=== PATIENT | male | born 1930 | race Caucasian/White ===

== ENCOUNTER → 2016-06-25 | Outpatient (CLI) | payer OTHER ==
[~2016-06-25] MED LIST: ALPH300C PO; ASCO500T3 PO; BIOT1CAP3 PO; BRIM0.1S OPB; CALC-440 PO; CHOL20005 PO; CLON0.1D7 TD; CLR10 PO; COEN1CAP46 PO; CRS/10 PO; CTP/1 PO; FROV2.5T5 PO; GLUCTAB7 PO; HYDR-5688 PO; HYDR25TA4 PO; LISI10TA PO; METO100T14 PO; MULT-221 PO; OMEG10007 PO; POLY335019 PO; PROB1TAB16 PO; PSYL55.43 PO; RESV100C PO; TURM1CAP PO; WARF4TAB43 PO
--- NOTE | 2016-06-25 12:49 | DIAGNOSTIC IMAGING REPORT ---
RIGHT RIBS UNILATERAL WITH PA CHEST CLINICAL HISTORY: Right rib pain COMPARISON STUDY: 12/13/2015 FINDINGS: The erect chest reveals no pneumothorax. There is a left subclavian dual-chamber central venous pacemaker present. There is no focal pulmonary consolidation. There is a minimal deformity the right sixth rib anteriorly which is felt to be old. No acute fractures are visualized. IMPRESSION: No acute fractures. No evidence of pneumothorax. Electronically signed by: Xander Alvarez M.D. 06/25/2016 12:47 PM Dictated Date/Time: 06/25/2016 12:45 PM
== END | disposition home or self-care (01) ==
LOC: C.RAD1850 11:52
PROVIDERS: ATTEND Family Medicine
DX: R07.81 Pleurodynia (principal)

== ENCOUNTER → 2016-06-29 | Outpatient (CLI) | payer OTHER ==
[~2016-06-29] MED LIST changes: +ALEN70TA4 PO; +AMIO200T4 PO; +AMOX875T PO; +BENZ100C18 PO; +CHOL1TAB46 PO; +CLON0.2D4 TD; +CODEINE COUGH SYRUP PO; +COEN1CAP17 PO; +DOCU100C PO; +LSN20 PO; +PSYL48.59 PO
--- NOTE | 2016-06-29 13:07 | DIAGNOSTIC IMAGING REPORT ---
RIGHT KNEE 1 OR 2 VIEWS CLINICAL HISTORY: BILATERAL KNEE PAIN Right pain COMPARISON: None. DISCUSSION: Patient is status post bilateral total joint replacement. Good contact between prosthetic and underlying bone. No significant joint effusion. There is no evidence for soft tissue swelling. IMPRESSION: Anatomic alignment status post bilateral total knee arthroplasties Electronically signed by: Lexx Ayers M.D. 06/29/2016 1:06 PM Dictated Date/Time: 06/29/2016 1:04 PM
== END | disposition home or self-care (01) ==
LOC: C.RDSM 11:25
PROVIDERS: ATTEND Physician Assistant
DX: Z96.653 Presence of artificial knee joint, bilateral (principal)

== ENCOUNTER → 2016-10-08 | Outpatient (CLI) | payer OTHER ==
[~2016-10-08] MED LIST changes: -ALEN70TA4 PO; -AMIO200T4 PO; -AMOX875T PO; -BENZ100C18 PO; -CHOL1TAB46 PO; -CLON0.2D4 TD; -CODEINE COUGH SYRUP PO; -COEN1CAP17 PO; -DOCU100C PO; -LSN20 PO; -PSYL48.59 PO
== END | disposition home or self-care (01) ==
LOC: C.LAB1850 11:48
PROVIDERS: ATTEND Urology
DX: R35.1 Nocturia (principal); R39.15 Urgency of urination

== ENCOUNTER → 2017-03-02 | Outpatient (CLI) | payer OTHER ==
[~2017-03-02] MED LIST changes: +ALEN70TA4 PO; +AMIO200T4 PO; +AMOX875T PO; +BENZ100C18 PO; +CHOL1TAB46 PO; +CLON0.2D4 TD; +CODEINE COUGH SYRUP PO; +COEN1CAP17 PO; +DOCU100C PO; +LSN20 PO; +PSYL48.59 PO
--- NOTE | 2017-03-02 15:04 | DIAGNOSTIC IMAGING REPORT ---
CHEST 2 VIEWS ROUTINE HISTORY: 86 years-old Male GENERALIZED WEAKNESS,COUGH acute weakness COMPARISON: Chest radiograph 12/13/2015, chest radiograph 10/10/2015 TECHNIQUE: PA and lateral views of the chest FINDINGS: Cardiac silhouette is mildly enlarged, unchanged. Left pectoral pacer is unchanged. Atherosclerosis of the aorta. Mild biapical pleural-parenchymal scarring without pneumothorax, pleural effusion, focal airspace consolidation or overt pulmonary edema. Mild right hemidiaphragmatic elevation. Multilevel degenerative changes of the spine. Compression deformities of the lower thoracic and upper lumbar spine redemonstrated. Clips of the upper abdomen suggest prior cholecystectomy. IMPRESSION: No acute cardiopulmonary process. The above report was generated using voice recognition software. It may contain grammatical, syntax or spelling errors. Electronically signed by: Teja Boogie M.D. 03/02/2017 3:02 PM Dictated Date/Time: 03/02/2017 3:01 PM
== END | disposition home or self-care (01) ==
LOC: C.RAD 14:27
PROVIDERS: ATTEND Physician Assistant
DX: R50.9 Fever, unspecified (principal); R05 Cough; R53.1 Weakness

== ENCOUNTER 2017-03-03 14:44 | Emergency (ER) | payer OTHER ==
[~2017-03-03] VITALS: Ht 167.6 cm; Wt 68.0 kg
[~2017-03-03 14:44] MED LIST changes: -ALEN70TA4 PO; -AMIO200T4 PO; -AMOX875T PO; -BENZ100C18 PO; -CHOL1TAB46 PO; -CLON0.2D4 TD; -CODEINE COUGH SYRUP PO; -COEN1CAP17 PO; -DOCU100C PO; -LSN20 PO; -PSYL48.59 PO
[2017-03-03 14:51] VITALS: Ht 167.6 cm; Wt 68.0 kg
[2017-03-03] MEDS ORDERED: CODEINE COUGH SYRUP PO (15:58)
[2017-03-03] MEDS ORDERED: COEN1CAP17 PO (15:58)
[2017-03-03] MEDS ORDERED: DOCU100C PO (15:58)
[2017-03-03] MEDS ORDERED: PSYL48.59 PO (15:58)
[2017-03-03 16:04] VITALS: O2SAT 96
[2017-03-03] MEDS ORDERED: ALEN70TA4 PO (16:05)
[2017-03-03] MEDS ORDERED: CLON0.2D4 TD (16:05)
[2017-03-03] MEDS ORDERED: LSN20 PO (16:14)
[2017-03-03] MEDS ORDERED: CHOL1TAB46 PO (16:14)
[2017-03-03] MEDS ORDERED: AMIO200T4 PO (16:14)
--- NOTE | 2017-03-03 16:19 | DIAGNOSTIC IMAGING REPORT ---
SINGLE VIEW CHEST CLINICAL HISTORY: Dyspnea. FINDINGS: An AP, portable, upright chest radiograph is compared to study dated 03/02/2017. The examination is degraded by portable technique, apical lordotic positioning, and patient rotation. A 2-lead cardiac pacemaker is unchanged in position and partially obscures the left upper chest. The heart is enlarged and there is atherosclerotic calcification of the thoracic aorta. The pulmonary vasculature is noncongested. Chronic interstitial thickening is similar to previous. No airspace consolidation, pleural effusion, or pneumothorax is seen. The skeletal structures are osteopenic. The bony thorax is grossly intact. Cholecystectomy clips are seen in the right upper quadrant. IMPRESSION: 1. Cardiomegaly and cardiac pacemaker. There is no radiographic evidence of congestive failure. 2. No airspace consolidation or pleural effusion is seen. Electronically signed by: Bronson Craft M.D. 03/03/2017 4:17 PM Dictated Date/Time: 03/03/2017 4:17 PM
[2017-03-03] MEDS ORDERED: ACETAMINOPHEN 325 MG TAB PO STA (16:23)
[2017-03-03] MEDS ORDERED: GUAIFENESIN 600 MG TABCR PO STA (16:23)
[2017-03-03] MEDS ORDERED: BENZONATATE 100MG CAP PO ONE (16:30)
[2017-03-03] MEDS ORDERED: AMOXICILLIN/CLAVULANATE TAB 875 MG TAB PO ONE (16:45)
[2017-03-03 16:48] LABS: BASO % 0.3 %; BASO ABS # 0.02 K/uL (0-0.2); COMPLETE YES; EOS % 2.3 %; HEMATOCRIT 36.1 % (42-52); IG% 0.1 %; INR 1.1 (0.9-1.1); MEAN CORPUSCULAR HEMOGLOBIN 31.6 pg (25-34); MEAN CORPUSCULAR HGB CONC 33.2 g/dl (32-36); MEAN PLATELET VOLUME 10.9 fL (7.4-10.4); MONO % 13.7 %; NEUT % 70.6 %; PARTIAL THROMBOPLASTIN RATIO 1.1; PLATELET COUNT 141 K/uL (130-400); PROTHROMBIN TIME (PATIENT) 12.1 SECONDS (9.0-12.0); WHITE BLOOD COUNT 6.93 K/uL (4.8-10.8)
[2017-03-03 16:52] LABS: ALT/SGPT 55 U/L (12-78); AST/SGOT 45 U/L (15-37); BLOOD UREA NITROGEN 22 mg/dl (7-18); BUN/CREATININE RATIO 23.8 (10-20); CALCIUM 8.4 mg/dl (8.5-10.1); CARBON DIOXIDE 30 mmol/L (21-32); CHLORIDE 99 mmol/L (98-107); CREATININE 0.91 mg/dl (0.60-1.40); GLUCOSE 80 mg/dl (70-99); POTASSIUM 3.9 mmol/L (3.5-5.1); SODIUM 131 mmol/L (136-145)
[2017-03-03 16:57] LABS: ALB/GLOB RATIO 1.1 (0.9-2); ALKALINE PHOSPHATASE 64 U/L (45-117)
--- NOTE | 2017-03-03 17:01 | EMERGENCY ROOM VISIT NOTE ---
History Report prepared by Frances: Chava Wiseman Under the Supervision of: Dr. Alex Mahoney M.D. First contact with patient: 15:35 Chief Complaint: COUGH Stated Complaint: BAD COUGH, TEMPERATURE Nursing Triage Summary: pt to the ED with c/o non productive cough neg xray yesterday no c/o pain History of Present Illness The patient is a 86 year old white male with a past medical history of stent placement, hypertension, pacemaker, hyperlipidemia who presents to the ED with a cc of worsening nonproductive cough beginning three weeks ago. Positive fever , sick contact with . The patient states that he went to the clinic three weeks ago and was diagnosed with a viral infection. The patient is accompanied by his who states that the patient started to become relieved of his symptoms until a couple of days ago. She states that his cough worsened. The patient states that he went to the clinic again yesterday, where his x-ray was negative of PNA. His reports that today he developed a fever of 100.4, which prompted her to bring him to the ED. He reports that he took Brady's NyQuil and cough drops, which he admits helped relieve his symptoms. The patient admits that he got his flu shot. Source of History: patient Onset: three weeks ago Position: other (global) Quality: other (nonproductive) Timing: worsening Modifying Factors (Relieving): other (Brady's NyQuil, cough drops) Associated Symptoms: + fevers Review of Systems See HPI for pertinent positives and negatives. A total of ten systems were reviewed and were otherwise negative. 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 (21) Sleep apnea (22) Vitamin D deficiency Surgical Problems: (1) History of cataract removal with insertion of prosthetic lens (2) History of cholecystectomy (3) History of knee replacement (4) Status post total knee replacement Family History Cancer Diabetes mellitus Gallbladder disease Heart disease Hypertension Social History Smoking Status: Never Smoker Alcohol Use: none Drug Use: none Marital Status: Housing Status: lives with significant other Occupation Status: retired Current/Historical Medications Scheduled Alendronate Sodium (Fosamax), 70 MG PO WK Alpha-Lipoic Acid (Thioctic Ac (Alpha Lipoic Acid), 300 MG PO DAILY Amiodarone Hcl (Cordarone), 200 MG PO DAILY Amoxicillin & Pot Clavulanate (Augmentin 875-125 mg), 875 MG PO BID Ascorbic Acid (Vitamin C), 500 MG PO DAILY Benzonatate (Tessalon Perles), 100 MG PO BID Biotin (Biotin), 5,000 MCG PO DAILY Brimonidine Tartrate (Alphagan P Oph), 1 DROP OPB BID Calcium Citrate-Vitamin D (Calcium Citrate + D3), 1 TAB PO QAM Cholecalciferol (Vitamin D3), 5,000 UNITS PO QAM Clonidine Hcl (Edykaqtu-Chc-9), 0.2 MG TD WK Coenzyme Q10 (Ubidecarenone) (Co Q 10), 100 MG PO DAILY Fish Oil ([place]-3), 1 CAP PO DAILY Liqzkzgqkts-Vwrrjpcwwry-Lus C- (Glucosamine Chondroitin), 1 TAB PO BID Hydrochlorothiazide (Hctz), 12.5 MG PO noon Lisinopril (Lisinopril), 20 MG PO QAM Metoprolol Tartrate (Lopressor) (Lopressor), 100 MG PO BID Multiple Vitamins W/ Minerals (Multi For Him 50+), 1 TAB PO DAILY Probiotic Product (Probiotic), 1 TAB PO DAILY Resveratrol (Resveratrol), 300 MG PO DAILY Rosuvastatin Calcium (Crestor), 10 MG PO HS Turmeric (Curcuma Longa) (Turmeric Curcumin), 500 MG PO DAILY Scheduled PRN Clonidine Hcl (Catapres), 0.5 TAB PO BID PRN for Hypotension Docusate Sodium (Stool Softener), 100 MG PO DAILY PRN for Constipation Loratadine (Claritin), 10 MG PO DAILY PRN for Nasal Congestion Polyethylene Glycol 3350 (Miralax), 17 GM PO DAILY PRN for Constipation Psyllium (Metamucil), 1 DOSE PO DAILY PRN for Constipation [Codeine Cough Syrup], Unknown Dose PO DIRECTED PRN for Cough Allergies Coded Allergies: Atorvastatin (Verified Allergy, Unknown, DECREASED SHORT TERM MEMORY, 03/03) Bupropion (Verified Allergy, Unknown, ACHES,GERD,ORTHSTASIS,TICS, 03/03/17) Celecoxib (Verified Allergy, Unknown, ABD PAIN, 03/03/17) Codeine (Verified Allergy, Unknown, Feels high, 03/03/17) Diclofenac (Verified Allergy, Unknown, ABD PAIN, 03/03/17) Hydrochlorothiazide (Verified Allergy, Unknown, Tinnitus,Disequilibrium, 03/03/17) Losartan (Verified Allergy, Unknown, Tinnitus,Disequilibrium, 03/03/17) Magnesium Salicylate (Verified Allergy, Unknown, SNOW, 03/03/17) Metronidazole (Verified Allergy, Unknown, Mid Epigastric Pain, 03/03/17) Misoprostol (Verified Allergy, Unknown, ABD PAIN, 03/03/17) Oxycodone (Verified Allergy, Unknown, FEELS BAD, 03/03/17) Rofecoxib (Verified Allergy, Unknown, ABD PAIN, 03/03/17) Sulfamethoxazole w/Trimethoprim (Verified Allergy, Unknown, Mid Epigastric Pain, 03/03/17) Testosterone (Verified Allergy, Unknown, itchy rash, 03/03/17) Tramadol (Verified Allergy, Unknown, DECREASED CONTROL OF THROUGHTS, ) Trazodone (Verified Allergy, Unknown, Sluggish, 03/03/17) Uncoded Allergies: CAPSAICIN TOPICAL (Allergy, Unknown, eyes burn, cough, 06/21/13) Physical Exam Vital Signs Date Time Temp Pulse Resp B/P (MAP) Pulse Ox O2 Delivery O2 Flow Rate FiO2 03/03/17 18:12 36.3 70 18 139/77 96 03/03/17 17:56 70 139/77 03/03/17 16:50 70 156/89 03/03/17 16:09 70 03/03/17 16:04 96 Room Air 03/03/17 14:51 36.3 72 18 150/89 96 Room Air Physical Exam GENERAL: Awake, alert, well-appearing, NAD HENT: Normocephalic, atraumatic. EYES: Normal conjunctiva. Sclera non-icteric. NECK: Supple. No nuchal rigidity. FROM. RESPIRATORY: CTAB, no rhonchi, wheezing. Crackles noted at the right, middle, and base. CARDIAC: RRR, no MRG ABDOMEN: Soft, NTND, BS+ MSK: No chest wall TTP, no LE edema NEURO: GCS 15, CN 2-12 intact, moves all 4s on command SKIN: No rash or jaundice noted. Palor noted. Medical Decision & Procedures ER Provider Diagnostic Interpretation: X-ray: Per my interpretation, radiologist review. SINGLE VIEW CHEST CLINICAL HISTORY: Dyspnea. FINDINGS: An AP, portable, upright chest radiograph is compared to study dated 03/02/2017. The examination is degraded by portable technique, apical lordotic positioning, and patient rotation. A 2-lead cardiac pacemaker is unchanged in position and partially obscures the left upper chest. The heart is enlarged and there is atherosclerotic calcification of the thoracic aorta. The pulmonary vasculature is noncongested. Chronic interstitial thickening is similar to previous. No airspace consolidation, pleural effusion, or pneumothorax is seen. The skeletal structures are osteopenic. The bony thorax is grossly intact. Cholecystectomy clips are seen in the right upper quadrant. IMPRESSION: 1. Cardiomegaly and cardiac pacemaker. There is no radiographic evidence of congestive failure. 2. No airspace consolidation or pleural effusion is seen. Electronically signed by: Bronson Craft M.D. 03/03/2017 4:17 PM Dictated Date/Time: 03/03/2017 4:17 PM Laboratory Results 03/03/17 16:13 Red Blood Count 3.80, Mean Corpuscular Volume 95.0, Mean Corpuscular Hemoglobin 31.6, Mean Corpuscular Hemoglobin Concent 33.2, Mean Platelet Volume 10.9, Neutrophils (%) (Auto) 70.6, Lymphocytes (%) (Auto) 13.0, Monocytes (%) (Auto) 13.7, Eosinophils (%) (Auto) 2.3, Basophils (%) (Auto) 0.3, Neutrophils # (Auto ) 4.89, Lymphocytes # (Auto) 0.90, Monocytes # (Auto) 0.95, Eosinophils # (Auto ) 0.16, Basophils # (Auto) 0.02 03/03/17 16:13 Test 03/03/17 16:13 White Blood Count 6.93 K/uL (4.8-10.8) Red Blood Count 3.80 M/uL (4.7-6.1) Hemoglobin 12.0 g/dL (14.0-18.0) Hematocrit 36.1 % (42-52) Mean Corpuscular Volume 95.0 fL (80-100) Mean Corpuscular Hemoglobin 31.6 pg (25-34) Mean Corpuscular Hemoglobin Concent 33.2 g/dl (32-36) Platelet Count 141 K/uL (130-400) Mean Platelet Volume 10.9 fL (7.4-10.4) Neutrophils (%) (Auto) 70.6 % Lymphocytes (%) (Auto) 13.0 % Monocytes (%) (Auto) 13.7 % Eosinophils (%) (Auto) 2.3 % Basophils (%) (Auto) 0.3 % Neutrophils # (Auto) 4.89 K/uL (1.4-6.5) Lymphocytes # (Auto) 0.90 K/uL (1.2-3.4) Monocytes # (Auto) 0.95 K/uL (0.11-0.59) Eosinophils # (Auto) 0.16 K/uL (0-0.5) Basophils # (Auto) 0.02 K/uL (0-0.2) RDW Standard Deviation 46.2 fL (36.4-46.3) RDW Coefficient of Variation 13.2 % (11.5-14.5) Immature Granulocyte % (Auto) 0.1 % Immature Granulocyte # (Auto) 0.01 K/uL (0.00-0.02) Prothrombin Time 12.1 SECONDS (9.0-12.0) Prothromb Time International Ratio 1.1 (0.9-1.1) Activated Partial Thromboplast Time 29.5 SECONDS (21.0-31.0) Partial Thromboplastin Ratio 1.1 Urine Color YELLOW Urine Appearance CLEAR (CLEAR) Urine pH 6.0 (4.5-7.5) Urine Specific [place] 1.023 (1.000-1.030) Urine Protein NEG (NEG) Urine Glucose (UA) NEG (NEG) Urine Ketones NEG (NEG) Urine Occult Blood NEG (NEG) Urine Nitrite NEG (NEG) Urine Bilirubin NEG (NEG) Urine Urobilinogen NEG (NEG) Urine Leukocyte Esterase NEG (NEG) Urine WBC (Auto) 0 /hpf (0-5) Urine RBC (Auto) 0-4 /hpf (0-4) Urine Hyaline Casts (Auto) 0 /lpf (0-5) Urine Epithelial Cells (Auto) 0-5 /lpf (0-5) Urine Bacteria (Auto) NEG (NEG) Anion Gap 2.0 mmol/L (3-11) Est Creatinine Clear Calc Drug Dose 50.6 ml/min Estimated GFR () 86.9 Estimated GFR (Non- 75.0 BUN/Creatinine Ratio 23.8 (10-20) Calcium Level 8.4 mg/dl (8.5-10.1) Total Bilirubin 0.5 mg/dl (0.2-1) Aspartate Amino Transf (AST/SGOT) 45 U/L (15-37) Alanine Aminotransferase (ALT/SGPT) 55 U/L (12-78) Alkaline Phosphatase 64 U/L (45-117) Troponin I < 0.015 ng/ml (0-0.045) Total Protein 6.6 gm/dl (6.4-8.2) Albumin 3.4 gm/dl (3.4-5.0) Globulin 3.2 gm/dl (2.5-4.0) Albumin/Globulin Ratio 1.1 (0.9-2) Laboratory results reviewed by me Medications Administered Medications (Trade) Dose Ordered Sig/Sylvia Route Start Time Stop Time Status Last Admin Dose Admin Acetaminophen (Tylenol Tab) 650 mg NOW STAT PO 03/03/17 16:23 03/03/17 16:25 DC 03/03/17 16:45 650 MG Benzonatate (Tessalon Perles Cap) 100 mg NOW ONCE PO 03/03/17 16:30 03/03/17 16:31 DC 03/03/17 16:45 100 MG Guaifenesin (Mucinex Contr Rel Tab) 1,200 mg ONE STAT PO 03/03/17 16:23 03/03/17 16:25 DC 03/03/17 16:44 1,200 MG Amoxicillin/ Clavulanate Potassium (Augmentin Tab) 875 mg ONE ONCE PO 03/03/17 16:45 03/03/17 16:46 DC 03/03/17 16:54 875 MG ECG Indication: other (fever) Rate (beats per minute): 70 Rhythm: other (atrial paced) Findings: other (Prolonged AV, NM 22, Q waves anteriorly, T wave flattening in lead 3. No other ST or TWI changes.) ED Course 1548: The patient was evaluated in room C10. A complete history and physical exam was performed. 180: I reevaluated the patient. Discussed results and discharge instructions: He verbalized understanding and agreement. The patient is ready for discharge. Medical Decision Triage Nursing notes reviewed. The patient is a 86 year old white male with a past medical history of stent placement, hypertension, pacemaker, hyperlipidemia who presents to the ED with a cc of worsening nonproductive cough beginning three weeks ago. The patient's presentation and history were concerning for etiologies such as infections, reactive airway disease, pneumonia, pneumothorax, COPD, CHF, cardiac ischemia, pulmonary embolism, musculoskeletal, gastrointestinal, as well as others were entertained. Patient was seen and evaluated the bedside. Patient is a 86-year-old nonsmoker who presents with chief complaint of some cough and fever. Patient has had a nonproductive cough for approximately 3 weeks. Patient's is also had a productive cough. Patient states that he has never smoked nor does he smoke. Patient states that her children have also had some cough and cold type symptoms. Patient had a noted fever 100.4 today. Patient does have some mild laryngitis. Patient denies any chest pains or shortness of breath. Patient had a purported mechanical fall but does not have any focal neurologic deficits nor pain. Patient has not taken much for his cough. With the exception of some codeine-based cough syrup. Patient did have blood work completed along with an EKG, troponin, and chest x-ray. Patient's chest x-ray was clear however in light of the patient's recent fever and persistent cough the patient was given a first dose of Augmentin. Patient does have mild hypocalcemia and is likely having a little bit of prerenal azotemia. Patient does not have an elevated white count patient is afebrile here with stable vital signs. Patient was told to continue hydration. Patient was given some suggestions with regard to oxfp-bud-qjdbuhd medications to help with his symptoms. Patient was afebrile here had normal vital signs. Patient was not tachypnea nor hypoxic. Patient was not tachycardic. Patient did not require supple oxygen. I did discuss with them that given there is no obvious pneumonia on chest x-ray given the normal vital signs are treated for chronic bronchitis. Patient tolerated by mouth. Patient deemed suitable for outpatient follow-up and treatment. Patient was told to follow-up with PCP by the end. Patient was also told return if any thing changed with regard to worsening symptoms.Patient was given strict follow-up, discharge, and return precautions. All questions were answered. Patient was deemed suitable for outpatient follow-up at this time. Patient agreed with the plan of care and was safely discharged home. Medication Reconcilliation Current Medication List: was personally reviewed by me Blood Pressure Screening Patient's blood pressure: Elevated blood pressure Blood pressure disposition: Referred to PCP Impression Primary Impression: Acute bronchitis Additional Impressions: Upper respiratory infection Cough Hypocalcemia Dehydration Scribe Attestation The scribe's documentation has been prepared under my direction and personally reviewed by me in its entirety. I confirm that the note above accurately reflects all work, treatment, procedures, and medical decision making performed by me. Departure Information Dispostion Home / Self-Care Prescriptions Benzonatate (TESSALON PERLES) 100 Mg Cap 100 MG PO BID for 7 Days, #14 CAP Prov: Alex Mahoney M.D. 03/03/17 Amoxicillin & Pot Clavulanate (Augmentin 875-125 mg) 1 Tab Tab 875 MG PO BID for 7 Days, #14 TAB Prov: Alex Mahoney M.D. 03/03/17 Referrals No Doctor, Assigned (PCP) Patient Instructions Bronchitis Chronic Dc, My [facility] Additional Instructions Please return to the emergency department if you have worsening or recurrent symptoms not amenable to at-home treatment. Please call for a follow-up appointment with her primary care physician. Please take your medications as prescribed. If you have other concerns and/or complaints please feel free to also call your primary care physician's office or return the ED for further evaluation, management, and treatment. You may take 200 mg Ibuprofen every 6 hours as needed for pain with food for no more than 2 consecutive days. You may take tylenol 650 mg every 6 hours as needed for pain. You may take motrin and tylenol separately or at the same time. Please ensure to make a follow-up appointment with your PCP this week. If you have any change in her symptoms please return for further evaluation treatment. Take your medications as prescribed. If taking an antibiotic consider taking a probiotic and/or eating yogurt, but at the least, please take with food as it can cause upset stomach. You have been examined and treated today on an emergency basis only. This is not a substitute for, or an effort to provide, complete comprehensive medical care. It is impossible to recognize and treat all injuries or illnesses in a single emergency department visit. It is therefore important that you follow up closely with [facility], your PCP, and/or your specialist(s). Call as soon as possible for an appointment. Thank you for your time and consideration. I look forward to speaking with you again soon. Please don't hesitate to call us if you have any questions. Problem Qualifiers Primary Impression: Acute bronchitis Bronchitis organism: unspecified organism Qualified Codes: J20.9 - Acute bronchitis, unspecified Additional Impressions: Upper respiratory infection URI type: unspecified URI Qualified Codes: J06.9 - Acute upper respiratory infection, unspecified
[2017-03-03 17:03] LABS: URINE APPEARANCE CLEAR (CLEAR); URINE BILIRUBIN NEG (NEG); URINE COLOR YELLOW; URINE EPITHELIAL CELL AUTO 0-5 /lpf (0-5); URINE NITRITE NEG (NEG); URINE SPECIFIC GRAVITY 1.023 (1.000-1.030); UROBILINOGEN NEG (NEG); ZZUR CULT IF INDIC CLEAN CATCH NO
[2017-03-03 17:04] LABS: MANUAL MICROSCOPIC REQUIRED? NO; REVIEW REQ? NO
[2017-03-03] MEDS ORDERED: BENZ100C18 PO (18:05)
[2017-03-03] MEDS ORDERED: AMOX875T PO (18:05)
[2017-03-03 18:12] VITALS: BP 139/77; PULSE 70; TEMP 36.3; O2SAT 96
== END 2017-03-03 18:13 | disposition home or self-care (01) ==
LOC: C.EDB 14:47 → C.EDC 18:13
DX: J20.9 Acute bronchitis, unspecified (principal); J06.9 Acute upper respiratory infection, unspecified; R05 Cough; E83.51 Hypocalcemia; E86.0 Dehydration; I10 Essential (primary) hypertension; Z95.0 Presence of cardiac pacemaker; E78.5 Hyperlipidemia, unspecified; I24.9 Acute ischemic heart disease, unspecified; I48.91 Unspecified atrial fibrillation; I70.0 Atherosclerosis of aorta; M54.5 Low back pain; M19.90 Unspecified osteoarthritis, unspecified site; G47.30 Sleep apnea, unspecified; E55.9 Vitamin D deficiency, unspecified; Z80.9 Family history of malignant neoplasm, unspecified; Z83.3 Family history of diabetes mellitus; Z83.79 Family history of other diseases of the digestive system; Z82.49 Family history of ischemic heart disease and other diseases of the circulatory system; Z79.899 Other long term (current) drug therapy

== ENCOUNTER → 2017-05-14 | Outpatient (CLI) | payer OTHER ==
[~2017-05-14] MED LIST changes: +ALEN70TA4 PO; +AMIO200T4 PO; +CHOL1TAB46 PO; -CHOL20005 PO; -CLON0.1D7 TD; +CLON0.2D4 TD; +CODEINE COUGH SYRUP PO; +COEN1CAP17 PO; -COEN1CAP46 PO; +DOCU100C PO; -FROV2.5T5 PO; -HYDR-5688 PO; -LISI10TA PO; +LSN20 PO; +PSYL48.59 PO; -PSYL55.43 PO; -WARF4TAB43 PO
[2017-05-14 17:05] LABS: BLOOD UREA NITROGEN 27 mg/dl (7-18); CALCIUM 9.5 mg/dl (8.5-10.1); CARBON DIOXIDE 31 mmol/L (21-32); CREATININE 1.03 mg/dl (0.60-1.40); GLUCOSE 88 mg/dl (70-99); POTASSIUM 3.8 mmol/L (3.5-5.1); SODIUM 140 mmol/L (136-145)
== END | disposition home or self-care (01) ==
LOC: C.LAB1850 15:38
PROVIDERS: ATTEND Nurse Practitioner Adult Health
DX: R39.15 Urgency of urination (principal); N40.1 Benign prostatic hyperplasia with lower urinary tract symptoms

== ENCOUNTER 2017-07-08 12:41 | Emergency (ER) | payer OTHER ==
[~2017-07-08] VITALS: Ht 167.6 cm; Wt 68.0 kg
[2017-07-08 12:49] VITALS: BP 164/102; PULSE 79; TEMP 36.4; O2SAT 96; Ht 167.6 cm; Wt 68.0 kg
== END 2017-07-08 14:22 | disposition left against medical advice (07) ==
LOC: C.EDB 12:42
DX: R07.9 Chest pain, unspecified (principal); Z53.21 Procedure and treatment not carried out due to patient leaving prior to being seen by health care provider